=== PATIENT | male | born 1970 | race Hispanic/Latino ===

== ENCOUNTER 2019-10-14 08:40 | Emergency (ER) | payer SELFPAY ==
--- NOTE | ~2019-10-14 | XR_ITS ---
EXAMINATION: XR abdomen/kub 1V EXAM DATE: 10/14/2019 09:59 INDICATION: Left urolithiasis, left lower back pain radiating to left testicle. TECHNIQUE: Frontal projection of the upper abdomen, frontal projection lower abdomen/pelvis for inter pretation. Correlation is made to CT abdomen pelvis same date. FINDINGS: Bilobulated calcific density at the left ureterovesicular junction measuring about 6 mm is identified, indicated. Additional small left inferior calyceal stones. Nonobstructive bowel gas rebecca donavan. Mild bony degenerative changes. There is no organomegaly. IMPRESSION: Left UVJ, kidney stones identified. Reviewed, dictated and finalized at location B. COACH
--- NOTE | ~2019-10-14 | CT_ITS ---
EXAMINATION: CT abdomen pelvis wo con DATE: 10/14/2019 09:25 INDICATION: Left flank pain radiating to the groin. TECHNIQUE: Computed tomography (CT) of the abdomen and pelvis was performed without intravenous contr ast. Automated exposure control and iterative reconstruction technique were employed. The dose-length product was 647.97 mGy-cm. COMPARISON: None. FINDINGS: The visualized portions of the lung bases demonstrate mild atelectasis in right lower lobe. No pleural effusion. The heart size is normal. No pericardial effusion. There is diffuse hepatic josafat atosis. The gallbladder, spleen, pancreas, and adrenal glands are normal. There is a 12 mm slightly h yperdense mass in right kidney. There are 5 stones in left kidney measuring up to 4 mm. There is mild left hydronephrosis and hydroureter. There is a 6 mm stone in distal left ureter. There are no dilat ed loops of bowel. The appendix is normal. There are no pathologically enlarged lymph nodes. There is no free intraperitoneal fluid. There are benign bone islands in the pelvis. There is moderate lumbar spondylosis. IMPRESSION: 1. 6 mm stone in distal left ureter with mild left hydronephrosis and hydroureter. 2. Nonobstructing left kidney stones. 3. 12 mm right kidney mass, which may be a hemorrhagic cyst or less likely a solid neoplasm. Abdomen MRI without and with contrast is recommended. Reviewed, dictated and finalized at location A. [employer] IMPRESSION: 1. 6 mm stone in distal left ureter with mild left hydronephrosis and hydrouret er. 2. Nonobstructing left kidney stones. 3. 12 mm right kidney mass, which may be a hemorrhagic cyst or less likely a so lid neoplasm. Abdomen MRI without and with contrast is recommended.
[2019-10-14 08:44] VITALS: BP 147/98; PULSE 83; RESP 18; TEMP 36.9; O2SAT 98
[2019-10-14 09:04] LABS: Basophils Absolute Auto 0.1 K/mm3 (0.0-0.1); Basophils Percent Auto 0.6 % (0.2-1.2); Eosinophils Absolute Auto 0.3 K/mm3 (0-0.3); Eosinophils Percent Auto 2.2 % (0-4.4); Hematocrit 46.4 % (42.0-52.0); Hemoglobin 15.8 g/dL (14.0-18.0); Immature Granulocyte Absolute 0.06 K/mm3 (0.00-0.031); Immature Granulocyte Percent A 0.5 % (0-0.5); Lymphocytes Absolute Auto 2.46 K/mm3 (0.9-3.2); Lymphocytes Percent Auto 19.8 % (18.3-44.2); Mean Corpuscular HGB Conc 34.1 g/dl (32-36); Mean Corpuscular Hemoglobin 31.5 pg (26-34); Mean Corpuscular Volume 92.4 fl (80-100); Monocytes Absolute Auto 1.6 K/mm3 (0.1-0.6); Monocytes Percent Auto 12.5 % (2.6-8.5); Neutrophils Percent Auto 64.4 % (45.5-73.1); Platelet Count Result 295 k/mm3 (150-375); Red Blood Count 5.02 M/mm3 (4.6-6.20); Red Cell Distribution Width 12.3 % (11.5-14.5); White Blood Count 12.4 K/mm3 (4.5-10.0)
--- NOTE | 2019-10-14 09:05 | ED.BACK ---
HPI - Back Pain/Injury General Chief Complaint: Back Pain/Injury Stated Complaint: flank pain Time Seen by Provider: 10/14/19 08:48 Source: patient Mode of arrival: ambulatory Limitations: no limitations History of Present Illness HPI Narrative: This is a 49 year old male that presents to the ER for left flank pain radiating to groin since last night. Reports sudden onset left sided flank pain in the middle of the night. Reports he has intermittently experienced similar pain over the last couple weeks. Otherwise has no other complaints. Denies fever, nausea, vomiting, diarrhea, dysuria or hematuria. Related Data Allergies Allergy/AdvReac Type Severity Reaction Status Date / Time No Known Allergies Allergy Verified 10/14/19 10:22 Review of Systems Review of Systems: Narrative: CONSTITUTIONAL: Denies fever GASTROINTESTINAL: Denies abdominal pain, nausea, vomiting, or diarrhea. GENITOURINARY: Denies dysuria or hematuria. MUSCULOSKELETAL: Reports back pain NEUROLOGIC: Denies numbness, or weakness. All systems reviewed & are unremarkable except as noted in HPI and below PMFSH Social History Social History (Updated 10/14/19 @ 09:07 by Rebeca Bucio PA-C) Smoking status: Never smoker Substance use: never Gender identity (if verbalized by the patient): Male Exam Narrative: Exam Narrative: GENERAL: Well-appearing, well-nourished, and in no acute distress. HEAD: Normocephalic, atraumatic. EYES: EOMI. CHEST: Clear to auscultation. No respiratory distress. No wheezes rales or rhonchi HEART: Regular rate and rhythm. No murmur heard. Normal peripheral pulses. ABDOMEN: Soft, nontender, nondistended, normal active bowel sounds. No CVA tenderness. BACK: No midline spinal tenderness EXTREMITIES: Normal range of motion. No edema. Strength equal (5/5) in bilateral lower extremities. Normal patellar reflexes bilaterally SKIN: Warm, dry, no rash. NEURO: No focal deficits. Alert and oriented x3. PSYCH: Normal mood and affect Course Consultations Consultation #1: Spoke with Leann, urology about patient work-up. He will be sent home with a urine strainer, Flomax and antibiotics. He is to follow-up in clinic Date: 10/14/19 Time: 10:19 Vital Signs Vital signs: Vital Signs Temperature 98.5 F 10/14/19 08:44 Pulse Rate 83 10/14/19 08:44 Respiratory Rate 18 10/14/19 08:44 Blood Pressure 147/98 H 10/14/19 08:44 Pulse Oximetry 98 10/14/19 08:44 Temperature 98.5 F 10/14/19 08:44 Pulse Rate 83 10/14/19 08:44 Respiratory Rate 18 10/14/19 08:44 Blood Pressure 147/98 H 10/14/19 08:44 Pulse Oximetry 98 10/14/19 08:44 MDM - Back Pain/Injury MDM Narrative Medical decision making narrative: Patient presents the emergency department for intermittent left flank pain over the last couple of weeks. He is afebrile and nontoxic-appearing. Pain is well under control. CBC with mild leukocytosis to 12.4. Creatinine is 0.9. UA with red blood cells, white blood cells and trace bacteria. Urine will be sent for culture. CT abdomen pelvis shows left 6 mm stone in the distal ureter with mild left hydronephrosis. Also shows a 12 mm right kidney mass. Patient and family were made aware of case findings. I spoke with urology about patient work-up. Since pain is under control he will be sent home with a urine strainer, antibiotics, and Flomax. He is to follow-up with urology outpatient. He was given warnings to return to the ER Lab Data Attestation: I reviewed the patient's lab results. Result diagrams: 10/14/19 08:59 10/14/19 08:59 Labs: Lab Results 10/14/19 10/14/19 10/14/19 Range/Units 08:59 08:59 09:41 WBC 12.4 H (4.5-10.0) K/mm3 RBC 5.02 (4.6-6.20) M/mm3 Hgb 15.8 (14.0-18.0) g/dL Hct 46.4 (42.0-52.0) % MCV 92.4 (80-100) fl MCH 31.5 (26-34) pg MCHC 34.1 (32-36) g/dl RDW 12.3 (11.5-14.5) % Plt Count 295 (150-375) k/mm3 MPV 1
[2019-10-14 09:15] LABS: Blood Urea Nitrogen 21 mg/dL (9-20); Calcium 9.3 mg/dL (8.4-10.2); Carbon Dioxide 24 mmol/L (22-30); Chloride 100 mmol/L (98-107); Estimated CRCL calculation 90 ml/min; Estimated Glomerular Filt Rate > 60; Glucose 101 mg/dL (75-110); Potassium 3.8 mmol/L (3.4-5.0); Sodium 138 mmol/L (137-145)
[2019-10-14 10:01] LABS: Add Urine Microscopic? YES; Appearance Urine Clear (Clear); Bacteria Urine Trace /hpf; Bilirubin Urine Negative (Negative); Blood Urine 3+ (Negative); Color Urine Yellow (Yellow); Glucose Urine UA Negative (Negative); Ketones Urine Negative (Negative); Leukocyte Esterase Ur Trace LEU/UL (Negative); Mucus Urine Few /lpf; Nitrate Urine Negative (Negative); Protein Urine 1+ mg/dL (Negative); Specific Grav Ur 1.018 (1.001-1.035); Urobilinogen Urine Negative mg/dL (<2.0)
[2019-10-14 10:55] VITALS: BP 122/73; PULSE 86; RESP 18; O2SAT 99
== END 2019-10-14 10:58 | disposition home or self-care (01) ==
PROVIDERS: Physician Assistant; Emergency Provider Family Medicine
DX: N13.2 Hydronephrosis with renal and ureteral calculous obstruction (principal); N28.89 Other specified disorders of kidney and ureter
CPT/HCPCS: 36415; 74018; 74176; 80048; 81001; 85025; 87086; 99284

== ENCOUNTER 2021-09-27 09:25 | Emergency (ER) | payer OTHER, SELFPAY ==
--- NOTE | ~2021-09-27 | XR_ITS ---
EXAMINATION: XR chest 1V portable DATE: 09/27/2021 10:13 INDICATION: Shortness of breath. TECHNIQUE: A single frontal view of the chest was obtained. COMPARISON: CT abdomen and pelvis 10/14/2019 FINDINGS: There are patchy airspace opacities in all lung zones bilaterally with a peripheral predomi nance with relative sparing of the lung apices. No pleural effusion or pneumothorax. The heart size i s normal. IMPRESSION: 1. Diffuse lung disease, consistent with pneumonia such as COVID-19 pneumonia. Reviewed, dictated and finalized at location B. [employer]
[2021-09-27 09:38] VITALS: BP 115/88; PULSE 96; RESP 24; TEMP 37.1; O2SAT 97
--- NOTE | 2021-09-27 09:41 | ECG_ITS ---
Measurements Intervals [place] Rate: 96 P: 66 IA: 178 QRS: 11 QRSD: 93 T: 11 QT: 361 QTc: 458 Interpretive Statements SINUS RHYTHM LOW QRS VOLTAGE IN PRECORDIAL LEADS BORDERLINE T WAVE ABNORMALITY- INFERIOR LEADS BASELINE ARTIFACT- I, II, AVR, AVF, V1, V4-V6 BORDERLINE ECG Electronically Signed On 09-27-2021 9:56:50 [facility] by Maxwell Gonsalez D.O.
[2021-09-27 09:44] VITALS: PULSE 97
[2021-09-27] MEDS: SODIUM CHLORIDE 0.9% IV 1,000 ML 999 ML IV CONT (10:15)
[2021-09-27 10:30] LABS: Basophils Percent Auto 0.4 % (0.2-1.2); Eosinophils Percent Auto 0.4 % (0-4.4); Hematocrit 50.5 % (42.0-52.0); Hemoglobin 17.6 g/dL (14.0-18.0); Immature Granulocyte Absolute 0.03 K/mm3 (0.00-0.031); Immature Granulocyte Percent A 0.7 % (0-0.5); Immature Platelet Fraction Pct 6.6 % (0.9-11.2); Lymphocytes Absolute Auto 1.11 K/mm3 (0.9-3.2); Lymphocytes Percent Auto 24.4 % (18.3-44.2); Mean Corpuscular HGB Conc 34.9 g/dl (32-36); Mean Corpuscular Hemoglobin 31.7 pg (26-34); Mean Platelet Volume 10.7 fl (7.4-10.4); Monocytes Absolute Auto 0.7 K/mm3 (0.1-0.6); Monocytes Percent Auto 15.2 % (2.6-8.5); Neutrophils Absolute Auto 2.7 K/mm3 (1.3-6.7); Neutrophils Percent Auto 58.9 % (45.5-73.1); Platelet Count Result 237 k/mm3 (150-375); Red Blood Count 5.55 M/mm3 (4.6-6.20); Red Cell Distribution Width 11.9 % (11.5-14.5); White Blood Count 4.5 K/mm3 (4.5-10.0)
[2021-09-27 10:43] LABS: Alanine Aminotransferase 73 U/L (4-50); Albumin Level 4.1 g/dL (3.5-5.1); Alkaline Phosphatase 65 U/L (38-126); Anion Gap 9 mmol/L (8-16); Aspartate Amino Transferase 90 U/L (17-59); Bilirubin,Total 0.5 mg/dL (0.2-1.3); Blood Urea Nitrogen 15 mg/dL (9-20); Calcium 8.9 mg/dL (8.4-10.2); Carbon Dioxide 28 mmol/L (22-30); Chloride 99 mmol/L (98-107); Estimated CRCL calculation 103 ml/min; Estimated Glomerular Filt Rate > 60; Glucose 125 mg/dL (65-110); Potassium 3.3 mmol/L (3.4-5.0); Sodium 136 mmol/L (137-145)
[2021-09-27 10:44] LABS: Lactic Acid Reflex 2.3 mmol/L (0.7-2.1)
[2021-09-27 11:12] LABS: INR 1.2; Prothrombin Time 14.6 Seconds (11.1-14.7)
[2021-09-27 11:13] LABS: Partial Thromboplastin Time 46.2 SECONDS (22.3-36.8)
[2021-09-27 11:15] LABS: D Dimer 0.32 ug/mL (<0.48)
[2021-09-27 11:16] VITALS: BP 139/81; PULSE 97; RESP 36; O2SAT 96
[2021-09-27 12:02] LABS: SARS-CoV-2 RNA PCR Positive
[2021-09-27 12:34] VITALS: BP 119/88; PULSE 91; RESP 17; O2SAT 96
--- NOTE | 2021-09-27 12:38 | ED.SOB ---
HPI - SOB/Dyspnea General Chief Complaint: Shortness of Breath/Dyspnea Stated Complaint: i have pnuemonia Time Seen by Provider: 09/27/21 09:27 Source: patient and RN notes reviewed Mode of arrival: ambulatory Limitations: no limitations History of Present Illness HPI Narrative: Patient is a 51-year-old male who presents to emergency department for evaluation of upper respiratory symptoms abdomen present for the last 7 days patient's is also being seen and has symptoms they are not vaccinated patient went to an urgent care had a negative COVID test was sent home with a Z-Olu for pneumonia patient presents today noting shortness of breath intermittent fevers. Patient presents nondistressed he denies any tobacco abuse or cardiopulmonary history. Related Data Allergies Allergy/AdvReac Type Severity Reaction Status Date / Time No Known Allergies Allergy Verified 09/27/21 09:46 Review of Systems Review of Systems: All systems reviewed & are unremarkable except as noted in HPI and below PMFSH Social History Social History Smoking status: Never smoker Substance use: never Gender identity (if verbalized by the patient): Male Exam Narrative: GENERAL: Ill-appearing, well-nourished, and in no acute distress. HEAD: Normocephalic, atraumatic. EYES: PERRLA and EOMI. ENT: Nares clear, no rhinorrhea or epistaxis. Mucous membranes moist. Oropharynx without tonsillar hypertrophy exudate or other lesions. NECK: Supple. No adenopathy or masses. CHEST: Clear to auscultation. No respiratory distress. Patient with crackles in the right lung field no wheezing HEART: Regular rate and rhythm. No murmur heard. Normal peripheral pulses. ABDOMEN: Soft, nontender, nondistended. EXTREMITIES: Normal range of motion. No edema. SKIN: Warm, dry, no rash. NEURO: No focal deficits. Alert and oriented x3. Cranial nerves II through XII grossly intact PSYCH: Normal mood and affect. Course Course Emergency Course: Patient presented with COVID-19 pneumonia when he ambulated he went to 92% when resting and he is at 97% patient will be discharged home given strict indication for return he has been advised to purchase a home pulse oximeter he is afebrile nontoxic-appearing at the time he is aware of his case findings treatment plan and diagnosis and as noted given strict indications for return with a diagnosis of COVID-19 pneumonia Vital Signs Vital signs: Vital Signs Temperature 98.7 F 09/27/21 09:38 Pulse Rate 96 09/27/21 09:38 Respiratory Rate 24 H 09/27/21 09:38 Blood Pressure 115/88 09/27/21 09:38 Pulse Oximetry 97 09/27/21 09:38 Temperature 98.7 F 09/27/21 09:38 Pulse Rate 91 09/27/21 12:34 Respiratory Rate 17 09/27/21 12:34 Blood Pressure 119/88 09/27/21 12:34 Pulse Oximetry 96 09/27/21 12:34 MDM - SOB/Dyspnea MDM Narrative Medical decision making narrative: Patient presented with shortness of breath upper respiratory was found to have COVID-19 pneumonia he will be discharged home provided with indications for return there was pneumonia seen on his chest x-ray the remainder of his blood work and evaluation was unremarkable. Lab Data Result diagrams: 09/27/21 10:20 09/27/21 10:20 Labs: Lab Results 09/27/21 09/27/21 09/27/21 Range/Units 10:20 10:20 10:20 WBC 4.5 (4.5-10.0) K/mm3 RBC 5.55 (4.6-6.20) M/mm3 Hgb 17.6 (14.0-18.0) g/dL Hct 50.5 (42.0-52.0) % MCV 91.0 (80-100) fl MCH 31.7 (26-34) pg MCHC 34.9 (32-36) g/dl RDW 11.9 (11.5-14.5) % Plt Count 237 (150-375) k/mm3 MPV 10.7 H (7.4-10.4) fl Immature Gran % (Auto) 0.7 H (0-0.5) % Neut % (Auto) 58.9 (45.5-73.1) % Lymph % (Auto) 24.4 (18.3-44.2) % [place] % (Auto) 15.2 H (2.6-8.5) % Eos % (Auto) 0.4 (0-4.4) % Baso % (Auto) 0.4 (0.2-1.2) % Lymph # (Auto) 1.11 (0.9-3.2) K/mm3
[2021-09-27 13:26] LABS: Reflex Lactic Acid Yes or No Add Lactic
--- NOTE | 2021-10-06 08:17 | PC.NURSE ---
LATE ENTRY This note is being entered to document information to the patient's record. The following information was omitted on [10/06/21], by [SHANNON Benz]. NS stopped at 1041.
== END 2021-09-27 13:04 | disposition home or self-care (01) ==
PROVIDERS: Emergency Medicine Emergency Medical Services; Emergency Provider Emergency Medicine
DX: U07.1 COVID-19 (principal); J12.82 Pneumonia due to coronavirus disease 2019; R94.31 Abnormal electrocardiogram [ECG] [EKG]
CPT/HCPCS: 36415; 71045; 80053; 83605; 85025; 85055; 85380; 85610; 85730; 87040; 93005; 99284; C9803; J7030; U0003; U0005